=== PATIENT | female | born 1960 | race Caucasian/White ===

== ENCOUNTER 2024-08-29 10:40 | Inpatient (IN) | payer OTHER ==
[~2024-08-29] VITALS: Ht 172.7 cm; Wt 78.8 kg
[~2024-08-29 10:40] MED LIST: ALBU90OI INH; IBUP600 PO; OMEP20ER PO
[2024-08-29 11:28] LABS: BASOPHILS ABSOLUTE AUTO 0.04 K/mm3 (0.00-0.23); BASOPHILS PERCENT AUTO 0 % (0-2); EOSINOPHILS ABSOLUTE AUTO 0.01 K/mm3 (0.00-0.68); EOSINOPHILS PERCENT AUTO 0 % (0-6); Hematocrit 37.9 % (33.0-51.0); Hemoglobin 13.6 g/dL (11.5-16.0); IMMATURE GRAN ABSOLUTE AUTO 0.05 K/mm3 (0.00-0.10); IMMATURE GRAN PERCENT AUTO 0 % (0-1); LYMPHOCYTES PERCENT AUTO 5 % (21-46); MONOCYTES ABSOLUTE AUTO 0.68 K/mm3 (0.16-1.47); MONOCYTES PERCENT AUTO 6 % (4-13); Mean Corpuscular HGB 33.2 pg (26.0-34.0); Mean Corpuscular HGB Conc 35.9 g/dL (31.5-36.5); Mean Corpuscular Volume 92 fL (80-100); Mean Platelet Volume 8.7 fL (9.1-12.4); NEUTROPHILS ABSOLUTE AUTO 10.04 K/mm3 (1.96-9.15); NEUTROPHILS PERCENT AUTO 88 % (41-73); Platelet Count 330 K/mm3 (150-400); RDW Coefficient Variation 11.5 % (11.7-14.2); RDW Standard Deviation 39.1 fL (35.1-46.3); White Blood Cell Count 11.42 K/mm3 (4.00-11.30)
[2024-08-29 11:48] LABS: Bun/Creatinine Ratio 12.6 (12.0-20.0); Calcium, Blood 9.4 mg/dL (8.5-10.1); Creatinine, Blood 0.56 mg/dL (0.40-1.00); Potassium, Blood 4.1 mmol/L (3.5-5.5)
[2024-08-29] MEDS ORDERED: Ipratropium/Albuterol SulF 2.5-0.5MG/3 ML Amp INH ONE (11:50)
[2024-08-29] MEDS ORDERED: MethylPREDNISolone Sod Succ 125 MG Vial IV ONE (11:50)
[2024-08-29 12:07] LABS: Influenza A, PCR NEGATIVE (NEGATIVE); Influenza B, PCR NEGATIVE (NEGATIVE); Resp Syncytial Virus, PCR NEGATIVE (NEGATIVE); SARS-Cov-2 (COVID-19) PCR, MMC NEGATIVE (NEGATIVE)
[2024-08-29] MEDS ORDERED: Benzonatate 100 MG Cap PO ONE (12:25)
[2024-08-29] MEDS ORDERED: Albuterol 2.5 MG/3 ML VIAL INH ONE (12:25)
[2024-08-29] MEDS ORDERED: Ipratropium/Albuterol SulF 2.5-0.5MG/3 ML Amp INH SCH (12:45)
[2024-08-29] MEDS ORDERED: Magnesium Hydroxide Conc 10 ML UDC PO PRN (12:45)
[2024-08-29] MEDS ORDERED: Ondansetron 4 MG TAB PO PRN (12:45)
[2024-08-29] MEDS ORDERED: Benzonatate 100 MG Cap PO PRN (12:50)
[2024-08-29] MEDS ORDERED: TraZODone HCl 50 MG Tab PO PRN (12:50)
[2024-08-29] MEDS ORDERED: Bisacodyl 10 MG Supp PR PRN (12:50)
[2024-08-29] MEDS ORDERED: Mometasone/Formoterol MDI 200/5 mcg 13 GM INH SCH (13:10)
[2024-08-29] MEDS ORDERED: HydrALAZINE HCl 20 MG / ML 1ML Vial IV PRN (13:15)
[2024-08-29] MEDS ORDERED: Furosemide 10 MG / ML 2ML Vial IV ONE (13:20)
[2024-08-29 14:45] VITALS: BP 154/87
[2024-08-29] MEDS ORDERED: FLU VACC TS2024-25(6MOS UP)/PF 45 MCG/0.5 ML SYRINGE IM ONE (15:00)
[2024-08-29] MEDS ORDERED: MethylPREDNISolone Sod Succ 125 MG Vial IV SCH (16:00)
--- NOTE | 2024-08-29 18:14 | NUR ---
SHIFT SUMMARY 1440 RECEIVED PT TO RM 361 VIA LUIS DANIEL FROM ER. PT ADMITTED FOR HYPOXIA R/T COPD EXAC. PT ABLE TO TX SELF TO BED. PLACED ON 3L VIA N/C; BASELINE RA. PT TO ER D/T INCREASED SOB FOR PAST FEW DAYS. WENT TO URGENT CARE TODAY AND SENT TO ER FOR HYPOXIA. PT IS A CURRENT SMOKER; NOW DOWN TO 1/2 PK/DAY. PLEASANT AND CO-O WITH CARE. INDEPENDENT IN RM AND TO BTM. IV STEROIDS GIVEN PER EMAR. TESSALON ORDERED FOR COUGH. PT RECEIVING RT TX'S PER EMAR. NO C/O. DENIES FURTHER NEEDS AT THIS TIME. CALL LT IN REACH.
[2024-08-29 19:32] VITALS: BP 170/87
[2024-08-29 19:48] LABS: Adenovirus Not Detected (NOT DETECT); Coronavirus 229E Not Detected (NOT DETECT); Coronavirus HKU1 Not Detected (NOT DETECT); Coronavirus NL63 Not Detected (NOT DETECT)
[2024-08-29 19:49] LABS: Bordetella pertussis Not Detected (NOT DETECT); Chlamydophila pneumoniae Not Detected (NOT DETECT); Coronavirus OC43 Not Detected (NOT DETECT); Human Metapneumovirus Not Detected (NOT DETECT); Human Rhinovirus/Enterovirus Detected (NOT DETECT); Influenza A/2009-H1 Not Detected (NOT DETECT); Influenza A/H1 Not Detected (NOT DETECT); Influenza A/H3 Not Detected (NOT DETECT); Influenza B Not Detected (NOT DETECT); Mycoplasma pneumoniae Not Detected (NOT DETECT); Parainfluenza Virus 1 Not Detected (NOT DETECT); Parainfluenza Virus 2 Not Detected (NOT DETECT); Parainfluenza Virus 3 Not Detected (NOT DETECT); Parainfluenza Virus 4 Not Detected (NOT DETECT); Respiratory Syncytial Virus Not Detected (NOT DETECT); SARS-Cov-2 (COVID-19), BioFire Not Detected (NOT DETECT)
[2024-08-29] MEDS ORDERED: Metoprolol Tartrate 25 MG Tab PO SCH (21:00)
[2024-08-29] MEDS ORDERED: Famotidine 20 MG Tab PO SCH (21:00)
[2024-08-29] MEDS ORDERED: Lactobacil 2-S.Thermo-Bifido 1 1 Cap PO SCH (21:00)
[2024-08-29] MEDS ORDERED: GuaiFENesin 600 MG TabCR PO SCH (21:00)
[2024-08-29] MEDS ORDERED: Cephalexin Monohydrate 500 MG Cap PO SCH (21:00)
[2024-08-30 01:02] VITALS: BP 150/85
--- NOTE | 2024-08-30 04:24 | NUR ---
PT IS AAOX3. PT SLEPT HARD THROUGHOUT THE NIGHT, DIFFICULT TO WAKE UP, THIS RN HAD TO PAT HER SHOULDER AND LEG. PT SITS AT EDGE OF BED TO WAKE UP AND AMBULATES TO BR INDEPENDENTLY, ENCOURAGE TO USE CALL LIGHT BEFOR OOB. TELE IN PLACE, ST @ 115. 3L O2 VIA NC, BASELINE IS RA. NO ACUTE NEEDS OVER NIGHT.
[2024-08-30 05:05] LABS: BASOPHILS ABSOLUTE AUTO 0.01 K/mm3 (0.00-0.23); BASOPHILS PERCENT AUTO 0 % (0-2); EOSINOPHILS PERCENT AUTO 0 % (0-6); Hematocrit 38.5 % (33.0-51.0); Hemoglobin 13.8 g/dL (11.5-16.0); IMMATURE GRAN ABSOLUTE AUTO 0.08 K/mm3 (0.00-0.10); IMMATURE GRAN PERCENT AUTO 1 % (0-1); LYMPHOCYTES ABSOLUTE AUTO 0.59 K/mm3 (0.84-5.20); LYMPHOCYTES PERCENT AUTO 4 % (21-46); MONOCYTES ABSOLUTE AUTO 0.13 K/mm3 (0.16-1.47); MONOCYTES PERCENT AUTO 1 % (4-13); Mean Corpuscular HGB 33.3 pg (26.0-34.0); Mean Corpuscular HGB Conc 35.8 g/dL (31.5-36.5); Mean Corpuscular Volume 93 fL (80-100); Mean Platelet Volume 8.7 fL (9.1-12.4); NEUTROPHILS ABSOLUTE AUTO 12.62 K/mm3 (1.96-9.15); NEUTROPHILS PERCENT AUTO 94 % (41-73); Platelet Count 329 K/mm3 (150-400); RDW Coefficient Variation 11.4 % (11.7-14.2); Red Blood Cell Count 4.15 M/mm3 (3.80-5.20); White Blood Cell Count 13.43 K/mm3 (4.00-11.30)
[2024-08-30 05:35] LABS: Bun/Creatinine Ratio 16.3 (12.0-20.0); Calcium, Blood 9.5 mg/dL (8.5-10.1); Creatinine, Blood 0.61 mg/dL (0.40-1.00); Magnesium, Blood 1.5 mg/dL (1.6-2.4); Potassium, Blood 3.8 mmol/L (3.5-5.5)
[2024-08-30 07:36] VITALS: BP 156/88
[2024-08-30] MEDS ORDERED: Loratadine 10 MG Tab PO SCH (09:00)
[2024-08-30] MEDS ORDERED: Metoprolol Tartrate 25 MG Tab PO SCH (09:00)
[2024-08-30] MEDS ORDERED: Enoxaparin 40 MG/0.4 ML SYR SC SCH (09:00)
[2024-08-30] MEDS ORDERED: Azithromycin 250 MG Tab PO SCH (09:00)
[2024-08-30] MEDS ORDERED: Fluticasone 0.05% Nasal Spray SCH (09:00)
[2024-08-30] MEDS ORDERED: Ibuprofen 400 MG Tab PO PRN (15:30)
[2024-08-30 15:51] VITALS: BP 142/78
--- NOTE | 2024-08-30 16:28 | NUR ---
SHIFT SUMMARY PATIENT ON 3L NC, ATTEMPTED TO WEAN TO 2L NC BUT PATIENT WAS DESATTING TO MID 80'S. PATIENT IS ALSO A MOUTH BREATHER, OXYMASK PROVIDED FOR NAPS AND AT HS. RT ADMINISTERING NEB TX WITH REPORTED RELIEF. LUNGS SOUNDS THIS AM WERE WHEEZY THROUGHOUT. PT TOOK A SHOWER TODAY. TELE REPLACED. ADVIL ORDERED BY DR. FRAGOSO PRAylin MILD PAIN. PT C/O OF HEADACHE THIS EVENING. ABLE TO MAKE NEEDS KNOWN. CALL LIGHT IN REACH. IND IN ROOM. HOOKED UP TO CONTINUOUS PULSE OX AND SHOWED PATIENT HOW TO DISCONNECT AND RECONNECT HERSELF.
[2024-08-30 20:11] VITALS: BP 126/80
[2024-08-31 03:34] VITALS: BP 152/89
--- NOTE | 2024-08-31 04:51 | NUR ---
AAOX4, USES CALL LIGHT FOR NEEDS. AMBULATES TO BR WITH SBA ASSIST AND OR INDEPENDENTLY, NEES HELP WITH O2 TUBING. TELE IN PLACE, SR @ 65. 3L VIA SIMPLE MASK TO KEEP SAT INT THE 90'S. NO ACUTE NEEDS OVERNIGHT.
[2024-08-31 04:55] LABS: Hematocrit 38.4 % (33.0-51.0); Hemoglobin 13.7 g/dL (11.5-16.0)
[2024-08-31 05:36] LABS: Bun/Creatinine Ratio 29.2 (12.0-20.0); Calcium, Blood 9.2 mg/dL (8.5-10.1); Creatinine, Blood 0.65 mg/dL (0.40-1.00); Magnesium, Blood 1.6 mg/dL (1.6-2.4); Potassium, Blood 4.2 mmol/L (3.5-5.5)
[2024-08-31 08:10] VITALS: BP 133/81
[2024-08-31] MEDS ORDERED: HydrALAZINE HCl 20 MG / ML 1ML Vial IV PRN (08:15)
[2024-08-31] MEDS ORDERED: Metoprolol Tartrate 25 MG Tab PO SCH (09:00)
[2024-08-31 16:26] VITALS: BP 135/80
[2024-08-31 20:56] VITALS: BP 156/85
[2024-09-01 03:14] VITALS: BP 138/95
--- NOTE | 2024-09-01 04:35 | NUR ---
AAOX4, INDEPENDENT IN ROOM AND PT WILL USE CALL LIGHT IF NEEDED. TELE IN PLACE, SR IN THE 70'S. O2 @ 2-3 L PER NC DURING DAY AND MASK @ HS. NO ACUTE NEEDS OVER NIGHT. EDUCATION PROVIDED ON NEW DX, PT IS HAVING A HARD TIME BELIEVING SHE HAS COPD.
[2024-09-01 05:13] LABS: Hematocrit 37.4 % (33.0-51.0); Hemoglobin 13.5 g/dL (11.5-16.0)
[2024-09-01 05:31] LABS: Magnesium, Blood 1.9 mg/dL (1.6-2.4)
[2024-09-01 05:32] LABS: Bun/Creatinine Ratio 29.1 (12.0-20.0); Calcium, Blood 9.3 mg/dL (8.5-10.1); Creatinine, Blood 0.65 mg/dL (0.40-1.00); Potassium, Blood 4.3 mmol/L (3.5-5.5)
[2024-09-01 08:40] VITALS: BP 161/86
[2024-09-01] MEDS ORDERED: CefTRIAXone Sodium 2,000 MG in NS 100 ML IV SCH (14:08)
[2024-09-01] MEDS ORDERED: Losartan Potassium 50 MG Tab PO SCH (15:00)
[2024-09-01] MEDS ORDERED: NS 1,000 ML IV SCH (15:00)
[2024-09-01 16:14] VITALS: BP 154/93
--- NOTE | 2024-09-01 19:03 | NUR ---
SHIFT SUMMARY PATIENT INCREASED TO 6L OXYMASK BY RT THIS AM. LUNG SOUNDS DONT SHOW ANY IMPROVEMENT, DR CALLES ORDERED CT TO RULE OUT PE AND SWITCHED BACK TO IV ANTIBIOTCS WELL CHANGED AROUND HER HTN MEDICATION. HE ASLO ORDERED NS INFUSION TO REPLETE SODIUM LEVELS. PATIENT SATTING WELL ON 3L OXYMASK THIS EVENING. ABLE TO MAKE NEEDS KNOWN. CALL LIGHT IN REACH.
[2024-09-01 19:15] VITALS: BP 135/69
[2024-09-01] MEDS ORDERED: AmLODIPine Besylate 5 MG Tab PO SCH (21:00)
[2024-09-02 03:24] VITALS: BP 148/84
--- NOTE | 2024-09-02 05:13 | NUR ---
SHIFT SUMMARY PATIENT IS ALERT AND ORIENTED. PATIENT HAS HAD NO ACUTE EVENTS THIS SHIFT. PATIENT HAS BEEN SATTING OVER 92 PERCENT ON 3L OXYMASK ALL SHIFT. PATIENT HAS HAD NO COMPLAINTS OF PAIN, NAUSEA, VOMITTING, OR SOB THIS SHIFT. PATIENT HAS BEEN IND AND PATIENT LETS NEEDS KNOWN APPROPRIATELY. IV FLUIDS INFUSED ORDERED. BED IN LOCKED AND LOWEST POSITION. CALL LIGHT IN PLACE. WILL MONITOR UNTIL SHIFT CHANGE.
[2024-09-02 05:36] LABS: Bun/Creatinine Ratio 30.5 (12.0-20.0); Calcium, Blood 8.7 mg/dL (8.5-10.1); Creatinine, Blood 0.52 mg/dL (0.40-1.00); Potassium, Blood 4.1 mmol/L (3.5-5.5)
[2024-09-02 07:25] VITALS: BP 152/88
[2024-09-02] MEDS ORDERED: NS 1,000 ML IV SCH (12:00)
[2024-09-02 16:00] VITALS: BP 152/79
--- NOTE | 2024-09-02 18:22 | NUR ---
NO CHANGES FOR THE PT. PLAN FOR PT TO CONTINUE WITH IV STERIODS WITH POSSIBLE D/C 09/03. PT IS A&OX4, VSS AND ON 3L. PT HAS NO QUESTIONS OR CONCERNS AT THIS TIME.
[2024-09-02 20:49] VITALS: BP 151/74
[2024-09-03 03:59] VITALS: BP 161/93
--- NOTE | 2024-09-03 04:18 | NUR ---
SHIFT SUMMARY: PATIENT SLEPT IN LONG INTERVALS, REMAINS IN DROPLET CONTACT ISOLATION FOR RHINOVIRUS. TELE SR @ 78, MEDICATED WITH PRN MICHEL PANTOJA AT HS. PLEASANT TO WORK WITH. IVF NS/125ML/HR ALL NIGHT.
[2024-09-03 05:18] LABS: Bun/Creatinine Ratio 23.6 (12.0-20.0); Calcium, Blood 8.6 mg/dL (8.5-10.1); Creatinine, Blood 0.64 mg/dL (0.40-1.00); Potassium, Blood 3.9 mmol/L (3.5-5.5)
[2024-09-03 07:22] VITALS: BP 164/83
[2024-09-03] MEDS ORDERED: Losartan Potassium 50 MG Tab PO SCH (09:00)
[2024-09-03 15:09] VITALS: BP 171/86
--- NOTE | 2024-09-03 19:07 | NUR ---
NO CHANGES IN PT STATUS. TITRATED PT DOWN TO 1LNC PER MD ORDERS. PT WILL POSSIBLY D/C TOMORROW PENDING LABS AND HOME O2 EVAL. PATIENT HAS NO QUESTIONS OR CONCERNS.
[2024-09-03 20:09] VITALS: BP 159/87
[2024-09-04 04:36] VITALS: BP 165/89
--- NOTE | 2024-09-04 04:52 | NUR ---
SHIFT SUMMARY; PATIENT SLEPT IN LONG INTERVALS. REMAINS IN DROPLET/CONTACT ISOLATION. GIVEN DAVID PALACIOS, LINDAN X 1. TELE SR @ .OXYMASK AT SMALLEST SETTING .5L/MN.
[2024-09-04 07:23] VITALS: BP 152/87
[2024-09-04] MEDS ORDERED: AMLO10 PO (14:48)
[2024-09-04] MEDS ORDERED: BENZ100A PO (14:48)
[2024-09-04] MEDS ORDERED: Flonase 0.05% N16 GM (14:49)
[2024-09-04] MEDS ORDERED: FAMO20 PO (14:49)
[2024-09-04] MEDS ORDERED: IPRAT-ALBUT 0.5-3 ML INH (14:51)
[2024-09-04] MEDS ORDERED: Mucinex600 MG PO (14:51)
[2024-09-04] MEDS ORDERED: LOSA50 PO (14:52)
[2024-09-04] MEDS ORDERED: DULERA 100 MCG/13 GM INH (14:53)
[2024-09-04] MEDS ORDERED: VISBIOME 112.51 EACH PO (14:54)
[2024-09-04] MEDS ORDERED: CEFD300 PO (14:54)
[2024-09-04] MEDS ORDERED: PRED20 PO (14:55)
[2024-09-04] MEDS ORDERED: DOXY100 PO (14:55)
[2024-09-04] MEDS ORDERED: NYSTATIN100000 U10 PO (14:57)
--- NOTE | 2024-09-04 15:36 | NUR ---
SHIFT SUMMARY PT A&OX4 AND ANSWERS QUESTIONS APPROPRIATELY. VSS, NO COMPLAINTS OF CP/PRESSURE OR SOB. PT RECEIVED SCHEDUED AND PRN MEDICATIONS. IN ROOM THIS AM, PT DEEMED STABLE FOR DISCHARGE. NO ACUTE EVENTS DURING SHIFT. IV REMOVED. PT DISCHARGED HOME VIA W/C DOWN TO PERSONAL VEHICLE. ALL BELONGINGS OOR AND WITH PT. PT DISCHARGED AT 15:15 w/ family member
== END 2024-09-04 15:17 | disposition home or self-care (01) | DRG 871 ==
LOC: ER 10:40 → MEDS 12:41
PROVIDERS: Emergency Medicine; Internal Medicine; ADMIT Hospitalist
DX: A41.89 Other specified sepsis (principal); J18.9 Pneumonia, unspecified organism; J96.01 Acute respiratory failure with hypoxia; J96.02 Acute respiratory failure with hypercapnia; J44.0 Chronic obstructive pulmonary disease with (acute) lower respiratory infection; J44.1 Chronic obstructive pulmonary disease with (acute) exacerbation; E87.1 Hypo-osmolality and hyponatremia; R65.20 Severe sepsis without septic shock; B97.89 Other viral agents as the cause of diseases classified elsewhere; F41.9 Anxiety disorder, unspecified; I16.0 Hypertensive urgency; K21.9 Gastro-esophageal reflux disease without esophagitis; Z71.6 Tobacco abuse counseling; Z88.0 Allergy status to penicillin; Z88.5 Allergy status to narcotic agent; Z90.710 Acquired absence of both cervix and uterus; Z90.79 Acquired absence of other genital organ(s)
CPT/HCPCS: 0202U; 0241U; 36415; 71045; 71260; 80048; 83735; 83880; 84484; 85014; 85018; 85025; 85379; 93005; 93010; 94640; 94644; 94664; 94760; 94761; 94762; 96374; 99285-25; A9270; J0360; J0696; J1650; J1940; J2919; J7030; Q9967